=== PATIENT | female | born 1955 | race Two or more races ===

== ENCOUNTER 2022-06-11 10:47 | Inpatient (IN) | payer MEDICARE, OTHER ==
[~2022-06-11] VITALS: Ht 165.1 cm; Wt 75.0 kg
[2022-06-11] MEDS ORDERED: SODIUM CHLORIDE 0.9% 1,000 ML IV ONE (13:30)
[2022-06-11] MEDS ORDERED: ENOXAPARIN SOD 80 MG/0.8ML SYRINGE SC ONE (13:30)
[2022-06-11 14:09] LABS: Basophils # (auto) 0 10 ^3/uL (0-0.2); Basophils % (auto) 0.7 % (0.0-2.0); Eosinophils # (auto) 0 10 ^3/uL (0-0.8); Eosinophils % (auto) 0.7 % (0.0-7.0); Hematocrit 44.1 % (36.0-46.0); Hemoglobin 14.1 g/dL (12.2-16.2); Lymphocytes # (auto) 2.1 10 ^3/uL (0.4-5.4); Lymphocytes % (auto) 31.1 % (10.0-50.0); Mean Corpuscular Hemoglobin 27.1 pg (28.0-32.0); Mean Corpuscular Volume 84.7 fL (80.0-100.0); Monocytes # (auto) 0.5 10 ^3/uL (0-1.3); Monocytes % (auto) 8.2 % (0.0-12.0); Neutrophils % (auto) 59.3 % (37.0-80.0); Nucleated Red Blood Cells % 0.1 %; Red Blood Cells 5.21 10^6/uL (4.0-5.20); Red Cell Distribution Width 13.1 % (11.8-14.3); White Blood Cell 6.7 10^3/uL (4.4-10.8)
[2022-06-11 14:29] LABS: Calcium 8.9 mg/dL (8.5-10.1); Potassium 3.5 mmol/L (3.5-5.1)
[2022-06-11 14:34] LABS: BUN/Creatinine Ratio 15.1; Bilirubin, Total 0.9 mg/dL (0.2-1.0); Total Protein 8.1 g/dL (6.4-8.2)
[2022-06-11 14:51] LABS: INR 0.98 (0.9-1.15)
[2022-06-11 15:00] LABS: Urine WBC None Seen /hpf (0 - 5)
[2022-06-11 15:31] LABS: Urine Bacteria NONE SEEN /hpf (None Seen); Urine Blood Negative /uL (Negative); Urine Specific Gravity 1.008 (1.001-1.035)
[2022-06-11] MEDS ORDERED: IOHEXOL 350 MG/ML 100ML IJ ONE (17:13)
[2022-06-11] MEDS ORDERED: MORPHINE SULFATE INJ 2 MG/ml SYRG IV PRN (17:30)
[2022-06-11] MEDS ORDERED: NITROGLYCERIN 0.4 MG SL TAB SL PRN (17:30)
[2022-06-11] MEDS ORDERED: ACETAMINOPHEN 500 MG TAB PO PRN (17:45)
[2022-06-11] MEDS: AZITHROMYCIN 500MG/ 250ML 250 ML IV SCH (17:58)
[2022-06-11 18:36] LABS: Magnesium 2.3 mg/dL (1.6-2.6)
[2022-06-11 18:44] LABS: CRP High Sensitivity 1.84 mg/dL (< 0.3)
[2022-06-11 18:52] LABS: Thyroid Stimulating Hormone 1.79 uIU/mL (0.358-3.74)
[2022-06-11] MEDS: ENOXAPARIN SOD 80 MG/0.8ML SYRINGE SC SCH (21:05)
[2022-06-11 21:23] VITALS: BP 164/80
[2022-06-11] MEDS ORDERED: ESTR10TA VA (21:58)
[2022-06-11] MEDS ORDERED: MULT-1018 PO (21:59)
[2022-06-11] MEDS: BUDESONIDE (INHALATION) 180 MCG IH IN SCH (22:55)
[2022-06-11] MEDS: ALBUTEROL SULF HFA 90MCG INH 200DOSE IN PRN (23:07)
[2022-06-12 01:41] VITALS: BP 164/80
[2022-06-12 05:00] VITALS: BP 137/76
[2022-06-12 05:23] LABS: Basophils # (auto) 0 10 ^3/uL (0-0.2); Basophils % (auto) 0.4 % (0.0-2.0); Eosinophils # (auto) 0.1 10 ^3/uL (0-0.8); Eosinophils % (auto) 1.2 % (0.0-7.0); Hematocrit 40.2 % (36.0-46.0); Hemoglobin 13.4 g/dL (12.2-16.2); Lymphocytes # (auto) 1.8 10 ^3/uL (0.4-5.4); Lymphocytes % (auto) 34.8 % (10.0-50.0); Mean Corpuscular Hemoglobin 27.8 pg (28.0-32.0); Mean Corpuscular Hgb Conc. 33.3 g/dL (32.0-36.0); Mean Corpuscular Volume 83.5 fL (80.0-100.0); Monocytes # (auto) 0.6 10 ^3/uL (0-1.3); Monocytes % (auto) 11.9 % (0.0-12.0); Neutrophils # (auto) 2.7 10 ^3/uL (1.6-8.6); Neutrophils % (auto) 51.7 % (37.0-80.0); Nucleated Red Blood Cells % 0.2 %; Red Blood Cells 4.82 10^6/uL (4.0-5.20); Red Cell Distribution Width 13.3 % (11.8-14.3); White Blood Cell 5.2 10^3/uL (4.4-10.8)
[2022-06-12 05:28] LABS: Albumin 3.4 g/dL (3.4-5.0); Calcium 8.5 mg/dL (8.5-10.1); Potassium 3.7 mmol/L (3.5-5.1)
[2022-06-12 05:33] LABS: BUN/Creatinine Ratio 17.7
[2022-06-12] MEDS: BUDESONIDE (INHALATION) 180 MCG IH IN SCH (06:42)
[2022-06-12] MEDS: ALBUTEROL SULF HFA 90MCG INH 200DOSE IN PRN (06:42)
[2022-06-12 09:00] VITALS: BP 151/75
[2022-06-12] MEDS: AZITHROMYCIN 500MG/ 250ML 250 ML IV SCH (09:25)
[2022-06-12] MEDS: ENOXAPARIN SOD 80 MG/0.8ML SYRINGE SC SCH (09:25)
[2022-06-12] MEDS ORDERED: ASCORBIC ACID 1,000 MG TAB PO SCH (10:00)
[2022-06-12] MEDS ORDERED: CHOLECALCIFEROL (VITD3) 2,000 UNIT CAP/TAB PO SCH (10:00)
[2022-06-12] MEDS ORDERED: DexAMETHasone SOD PHOS 10MG/1ML VIAL INJ IV SCH (10:00)
[2022-06-12] MEDS ORDERED: ZINC SULFATE 220mg CAP or TAB PO SCH (10:00)
[2022-06-12 13:00] VITALS: BP 170/89
[2022-06-12 17:00] VITALS: BP 120/66
[2022-06-12] MEDS ORDERED: APIX5TAB PO (17:23)
[2022-06-12 17:37] VITALS: BP 120/60
== END 2022-06-12 18:16 | disposition home or self-care (01) | DRG 299 ==
LOC: ER 10:47 → TELE 17:29 → TELE-EAST 20:52 → EAST 06-12 17:39
PROVIDERS: ADMIT Registered Nurse; ATTEND Registered Nurse
DX: I82.441 Acute embolism and thrombosis of right tibial vein (principal); U07.1 COVID-19; N18.2 Chronic kidney disease, stage 2 (mild); M71.21 Synovial cyst of popliteal space [Baker], right knee
CPT/HCPCS: 36415; 71275; 80053; 80061; 81001; 82306; 82728; 83036; 83605; 83615; 83735; 84443; 85025; 85379; 85610; 86141; 93005; 93971; 94640; 96360; 96361; 96372; 99291; G0378; J1100

== ENCOUNTER 2025-07-09 07:05 | Emergency (ER) | payer MEDICARE, OTHER ==
[~2025-07-09] VITALS: Ht 165.1 cm; Wt 67.3 kg
[~2025-07-09 07:05] MED LIST: APIX5TAB PO; ESTR10TA VA
--- NOTE | 2025-07-09 07:22 | ED.PDOC ---
Musculoskeletal HPI Comments This is a 70 year-old female, with a PMHX of Arthritis, who presents to the ED with a chief complaint of R shoulder pain with associated R sided neck pain as of 1700 last night. Patient reports that R shoulder pain as moderate to severe, constant, with limited ROM d/t pain. Patient reports taking a new medication, 200mg Methotrexate, X1 month ago with current medication, 200mg Plaquenil. Patient additionally reports usually having pain in her knees, ankles, and hands due to RA Patient has no further complaints at this time and otherwise denies further associated symptoms of chest pain, migraine, fever, chills, general weakness, or N/V/D. Denies erythema, swelling, warmth around the joints Chief Complaint: Upper Extremity Time Seen by MD: 07:19 Primary Care Provider: DEAN Anderson Notes: Nurses Notes, Medications, Allergies Allergies: Coded Allergies: NO KNOWN ALLERGIES (Unverified , 12/20/11) Home Meds Active Scripts Methylprednisolone (Medrol Dosepak) 4 Mg Chris, 4 MG PO UD, #21 TAB 0 Refills UAD Prov:SIDRA ENNIS PARK ATTENDANT 07/09/25 Apixaban Base (ELIQUIS) 5 Mg Tab, 10 MG PO BID for 7 Days, #7 TAB 10MG BID X 7 DAYS THEN 5MG PO BID FOR AT LEAST 6 MONTHS FOR DVT/PE TREATMENT Prov:ELENO BRADY DO 06/12/22 Apixaban Base (ELIQUIS) 5 Mg Tab, 5 MG PO BID for 30 Days, #60 TAB Prov:ELENO BRADY DO 06/12/22 Reported Medications Estradiol Hemihydrate (Vagifem) 10 Mcg Tab, 10 MCG VA 2XW PRN for UTERINE PROLAPSE, TAB 06/11/22 Information Source: Patient Mode of Arrival: Ambulatory Location: Right Extremity Location: Shoulder Timing: Hours Prehospital treatment: None Severity: Moderate Able to Move Extremity: Yes Bear Weight: Limited Pain: Moderate Onset of Symptoms: Spontaneous Symptoms: Pain DVT Risk Factors: NONE Last Tetanus: UTD Associated signs and symptoms: Shoulder pain Past Medical History PAST MEDICAL HISTORY: Arthritis Surgical History: Tubal Ligation CHILD CARE ATTENDANT History: Denies all CHILD CARE ATTENDANT Hx Family History Family History: No family hx of Heart jud Social History Smoker: Non-Smoker Alcohol: Denies ETOH Use Drugs: Denies Drug Use Lives In: Home Constitutional: denies: chills, diaphoresis, fatigue, fever, malaise, sweats, weakness, others EENTM: denies: blurred vision, double vision, ear bleeding, ear discharge, ear drainage, ear pain, ear ringing, eye pain, eye redness, hearing loss, mouth pain, mouth swelling, nasal discharge, nose bleeding, nose congestion, nose pain, photophobia, tearing, throat pain, throat swelling, voice changes, others Respiratory: denies: cough, hemoptysis, orthopnea, SOB at rest, shortness of breath, SOB with excertion, stridor, wheezing, others Cardiovascular: denies: chest pain, dizzy spells, diaphoresis, Dyspnea on exertion, edema, irregular heart beat, left arm pain, lightheadedness, palpitations, PND, syncope, others Gastrointestinal: denies: abdomen distended, abdominal pain, blood streaked bowels, constipated, diarrhea, dysphagia, difficulty swallowing, hematemesis, melena, nausea, poor appetite, poor fluid intake, rectal bleeding, rectal pain, vomiting, others Genitourinary: denies: abnormal vagina bleeding, burning, dyspareunia, dysuria, flank pain, frequency, hematuria, incontinence, pain, , vagina discharge, urgency, others Neurological: denies: dizziness, fainting, headache, left sided numbness, left sided weakness, numbness, paresthesia, pre-existing deficit, right sided numbness, right sided weakness, seizure, speech problems, tingling, tremors, weakness, others Musculoskeletal: reports: joint pain; denies: back pain, gout, joint swelling, muscle pain, muscle stiffness, neck pain, others Integumetry: denies: bruises, change in color, change in hair/nails, dryness, laceration, lesions, lumps, rash, wounds, others Allergic/Immunocompromised: denies: Difficulty Healing, Frequent Infections, Hives, Itching, others Hematologic/Lymphatic: denies: anemia, blood clots, easy bleeding, easy bruising, swollen glands, others Endocrine: denies: excessive hunger, excessive sweating, excessive thirst, excessive urination, flushing, intolerance to cold, intolerance to heat, unexplained weight gain, unexplained weight loss, others Psychiatric: denies: anxiety, bipolar disorder, depression, hopeless, panic disorder, schizophrenia, sleepless, suicidal, others All Other Systems: Reviewed and Negative Physical Exam General Appearance: Mild Distress, Normal HEENT: Normal ENT Inspection, Pharynx Normal, TMs Normal Neck: Full Range of Motion, Non-Tender, Normal, Normal Inspection Respiratory: Chest Non-Tender, Lungs Clear, No Accessory Muscle Use, No Respiratory Distress, Normal Breath Sounds Cardiovascular: No Edema, No JVD, No Murmur, No Gallop, Normal Peripheral Pulses, Regular Rate/Rhythm Breast Exam: Deferred Gastrointestinal: No Organomegaly, Non Tender, No Pulsatile Mass, Normal Bowel Sounds, Soft Genitalia: Deferred Pelvic: Deferred Rectal: Deferred Extremities: No calf tenderness, Normal capillary refill, Normal inspection, Normal range of motion, Non-tender, No pedal edema Musculoskeletal : Location: Right Extremity Location: Shoulder Apperance: Other (localized ttp to the right supraspinatus muscle, Nuerovascular sensation intact) Neurologic: Alert, director of product marketing II-XII nml as Tested, No Motor Deficits, Normal Affect, Normal Mood, No Sensory Deficits Cerebellar Function: Normal Reflexes: Normal Skin: Dry, Normal Color, Warm Lymphatic: No Adenopathy Was a procedure done? Was a procedure done?: No Differential Diagnosis EXT Differential Diagnosis: Fracture, Sprain, Dislocation, Strain, Arthritis X-Ray, Labs, Meds, VS Vital Signs Date Time Temp Pulse Resp B/P (MAP) Pulse Ox O2 Delivery O2 Flow Rate FiO2 07/09/25 08:17 86 16 97 Room Air 07/09/25 08:17 97.9 86 16 144/78 (100) 97 97.9 07/09/25 07:06 97.7 90 16 157/80 98 97.7 Current Medications Medications (Trade) Dose Ordered Sig/Ban Route Start Time Stop Time Status Last Admin Acetaminophen/ Hydrocodone Bitart (Vinton 7.5/325MG Tab) 1 tab ONCE ONCE PO 07/09/25 07:30 07/09/25 07:31 DC 07/09/25 07:[address] [address] Ph: [phone] DIAGNOSTIC IMAGING Diagnostic Imaging Report : [id number] Signed PATIENT: KHALIF MONTILLA ACCT: [id number] UNIT: [id number] : 1955 LOC: ER ROOM / BED: / AGE / SEX: 70 / F ADM STATUS: REG ER SERVICE 6 ORDERING PHYSICIAN: SIDRA ENNIS NP PROCEDURE(s): CXR2 - CHEST TWO VIEWS ROUTINE REASON: R/o PNA ORDER NUMBER(s): [id number], ACCESSION NUMBER(s): [id number] XY CHEST TWO VIEWS ROUTINE CLINICAL HISTORY: R/o PNA COMPARISON: CXR2 on DOS: 06/11/22 TECHNIQUE: Frontal and lateral view of the chest was obtained FINDINGS: Lines and Tubes: None Lungs: No focal consolidation. Pleura: No effusion. No pneumothorax. Cardiomediastinal contours: Unremarkable Bones: No acute osseous abnormality. IMPRESSION: 1. No acute cardiopulmonary disease. ATED BY: ARLETTE GALAVIZ MD DICTATED DATE/TIME: 07/09/25802 SIGNED BY: ARLETTE GALAVIZ MD SIGNED DATE/TIME: 07/09/25802 CC: X-Ray, Labs, Meds, VS Comment This is a 70 year-old female, with a PMHX of Arthritis, who presents to the ED with a chief complaint of R shoulder pain with associated R sided neck pain as of 1700 last night. Patient arrives alert and oriented, ABC's intact, afebrile, vital signs stable, saturating well in room air Diagnostic imaging ordered by me and results interpreted by radiology : Chest XRAY showed no abnormalities. Patient was given: 7.5/325MG Vinton. Tolerated medications with no adverse reaction. Patient with low suspicion of septic joint, no obvious he had swelling patient has no exposures for gonorrhea or multiple joints to expect gonorrhea or autoimmune condition. We will defer doing labs Disposition: Discharge. Strict return precautions discussed with the patient with full understanding. Supportive care advised (rest, ice, heat, NSAIDs, stretching exercises) Massage muscles with cold pack or ice for 20 minutes 4 times per day. Usually most useful if there is swelling during the first 48 hours Heating pad on the most painful area for 20 minutes to relieve muscle spasm Sleep and the most comfortable sleeping position (usually on the side with knees bent) Light stretching, no strenuous activity, avoid frequent bending, avoid carrying heavy objects Discussed possible benefits of yoga and acupuncture Patient is stable for discharge at this time. External notes reviewed. Test results and diagnostic imaging interpreted. All diagnostic findings, discharge care, education and instructions provided Follow-up with PCP in 2 to 3 days Patient verbalized understanding and agreed to treatment plan Vital signs stable, afebrile, no acute distress noted Patient ambulatory with strong steady gait Advised to return precautions for any new or worsening symptoms, return to ER immediately for re-evaluation Patient is aware that the purpose of this visit was for an acute medical emergency requiring emergent stabilization. Chronic conditions, including malignancies have not been ruled out. Patient is instructed to follow up with PCP as directed and discharge instructions for continued care and workup. If unable to arrange follow-up, patient is to return to the emergency department for reassessment. Patient (parent or legal guardian if applicable) was given verbal and written discharge instructions and acknowledges understanding. Additional MDM Review of External, Non-ED records: External records reviewed. Discussion with independent historian (EMS, family) history obtained from the patient/parents (if applicable) at bedside Chronic conditions affecting care: None Social determinants of health affecting care: None Consideration of admission (observation or admission): I considered escalation of care to admission for this patient, however given the reassuring workup, the patient is safe for outpatient management. Discussion with the Radiology: No Tests considered but not performed: Prescription medication considered but not given: Images Reviewed?: Images reviewed and evaluated by me Time of 1ST Reevaluation: 08:15 Reevaluation 1ST: Unchanged Patient Education/Counseling: Diagnosis, Treatment, Need For Follow Up Family Education/Counseling: No Family Present Medical Screening: No EMC Exist At This Time Departure 1 Departure Time of Disposition: 08:09 Impression: Primary Impression: Musculoskeletal pain Disposition: 01 HOME / SELF CARE / HOMELESS Condition: Stable Additional Instructions: Follow up with PCP in 1-2 days. Take medications as prescribed. Return to the ED for any new or worsening symptoms. e-Prescriptions Methylprednisolone (Medrol Dosepak) 4 Mg Chris 4 MG PO UD, #21 TAB 0 Refills UAD Prov: SIDRA ENNIS NP 07/09/25 Discharged With: Self Critical Care Note Critical Care Time?: No Stability Stability form required: No Heart Score Heart Score: Heart Score Response (Comments) Value History N/A 0 EKG N/A 0 Age N/A 0 Risk Factors N/A 0 Troponin N/A 0 Total 0 I personally scribed for RAYMON,SIDRA F PARK ATTENDANT (DVAYOMA) on 07/09/25 at 07:22. Electronically submitted by Enedelia Arias ([employer]). I personally scribed for RAYMONALONAO F PARK ATTENDANT (DVAYOMA) on 07/09/25 at 07:27. Electronically submitted by Enedelia Arias ([employer]). I personally scribed for RAYMONSIDRA F PARK ATTENDANT (DVAYOMA) on 07/09/25 at 07:41. Electronically submitted by Enedelia Arias ([employer]). I personally scribed for RAYMONSIDRA F PARK ATTENDANT (DVAYOMA) on 07/09/25 at 07:43. Electronically submitted by Enedelia Arias ([employer]). I personally scribed for RAYMONSIDRA F PARK ATTENDANT (DVAYOMA) on 07/09/25 at 07:47. Electronically submitted by Enedelia Arias ([employer]). I personally scribed for RAYMONALONAO F PARK ATTENDANT (DVAYOMA) on 07/09/25 at 08:19. Electronically submitted by Enedelia Arias ([employer]). RAYMONALONAO F PARK ATTENDANT Jul 09, 2025 07:22
[2025-07-09] MEDS: HYDROcodone-ACET 7.5/325MG TAB PO ONE (07:33)
--- NOTE | 2025-07-09 08:05 | DVH ---
XY CHEST TWO VIEWS ROUTINE CLINICAL HISTORY: R/o PNA COMPARISON: CXR2 on DOS: 06/11/22 TECHNIQUE: Frontal and lateral view of the chest was obtained FINDINGS: Lines and Tubes: None Lungs: No focal consolidation. Pleura: No effusion. No pneumothorax. Cardiomediastinal contours: Unremarkable Bones: No acute osseous abnormality. IMPRESSION: 1. No acute cardiopulmonary disease.
[2025-07-09] MEDS ORDERED: METH4PAK PO (08:10)
[2025-07-09 08:17] VITALS: BP 144/78; PULSE 86; RESP 16; TEMP 97.9; O2SAT 97
== END 2025-07-09 08:19 | disposition home or self-care (01) ==
LOC: ER 07:05
DX: M25.511 Pain in right shoulder (principal); M25.561 Pain in right knee; R07.89 Other chest pain; M19.90 Unspecified osteoarthritis, unspecified site; Z98.51 Tubal ligation status; Z79.01 Long term (current) use of anticoagulants; Z79.899 Other long term (current) drug therapy
CPT/HCPCS: 71046